=== PATIENT | female | born 1980 | race Caucasian/White ===

== ENCOUNTER 2019-03-18 18:00 | Emergency (ER) | payer OTHER, SELFPAY ==
[2019-03-18 18:16] VITALS: BP 104/66; PULSE 76; RESP 16; TEMP 36.6; O2SAT 99
--- NOTE | 2019-03-18 18:25 | ED.ABDPAIN ---
HPI - Abdominal Pain General Chief Complaint: Abdominal Pain Stated Complaint: lower right abd/back pain Time Seen by Provider: 03/18/19 18:33 Source: patient and RN notes reviewed Mode of arrival: ambulatory Limitations: no limitations History of Present Illness HPI narrative: 38-year-old female presents with concern for acute abdominal pain. Reports pain started last night with right flank pain, right lower quadrant abdominal pain, periumbilical pain. Denies fever, vomiting. Reports last bowel movement was 2 days ago. MD elicited complaint: abdominal pain Pertinent past history: kidney stones Related Data Home Medications Medication Instructions Recorded Confirmed No Home Medications 03/18/19 03/18/19 Allergies Allergy/AdvReac Type Severity Reaction Status Date / Time No Known Allergies Allergy Verified 03/18/19 18:26 Review of Systems Review of Systems: Narrative: CONSTITUTIONAL: Denies malaise, chills, sweats, or fever. CARDIOVASCULAR: Denies chest pain, palpitations RESPIRATORY: Denies cough or dyspnea. GASTROINTESTINAL: Reports right lower quadrant and periumbilical abdominal pain. Denies nausea, vomiting, diarrhea, bloody, or mucous stools. GENITOURINARY: Denies dysuria or hematuria. Reports right flank pain SKIN: Denies rash or itching. MUSCULOSKELETAL: Reports right lower back pain. Denies joint pain, or myalgia. NEUROLOGIC: Denies numbness, weakness, or headache. All systems reviewed & are unremarkable except as noted in HPI and below PMFSH Family History Family History (Updated 11/26/14 @ 00:00 by CONVUSER A) Other Family history of coronary artery disease Hypertension Social History Social History Smoking status: Current every day smoker Comments At time of signature, agree with nursing past medical, surgical, social and family history. There is no relevant family history pertinent to the presenting complaint Exam Narrative: Exam Narrative: GENERAL: Well-appearing, well-nourished, and in no acute distress. HEAD: Normocephalic. EYES: PERRLA, conjunctivae clear. NECK: Supple. No lymphadenopathy CHEST: Clear to auscultation. No respiratory distress. HEART: Regular rate and rhythm. No murmur heard. Normal peripheral pulses. ABDOMEN: Soft, right lower quadrant tenderness, periumbilical tenderness upon palpation, nondistended, normal active bowel sounds, no palpable or pulsatile masses, no guarding. Right CVA tenderness SKIN: Warm, dry, no rash. NEURO: Alert and oriented x3. PSYCH: Normal mood and affect Course Course Emergency Course: Patient is aware of, understands and agrees to reasons to be seen in the emergency department. Portions of this record may have been created with voice recognition software Vital Signs Vital signs: Vital Signs Temperature 97.8 F 03/18/19 18:16 Pulse Rate 76 03/18/19 18:16 Respiratory Rate 16 03/18/19 18:16 Blood Pressure 104/66 03/18/19 18:16 Pulse Oximetry 99 03/18/19 18:16 Temperature 97.8 F 03/18/19 18:16 Pulse Rate 76 03/18/19 18:16 Respiratory Rate 16 03/18/19 18:16 Blood Pressure 104/66 03/18/19 18:16 Pulse Oximetry 99 03/18/19 18:16 Reviewed. Transfer Transfered to: [facility] Transportation: Other (Private vehicle) Transfer rationale: Abdominal pain MDM - Abdominal Pain MDM Narrative Medical decision making narrative: Exam findings warrant further evaluation the emergency department. Patient agrees to proceed directly to emergency department Differential Diagnosis Differential diagnosis: Likely abdominal pain, acute appendicitis, calculus of kidney, constipation, diverticulitis, endometriosis, pancreatitis and small bowel obstruction Critical Care Time Critical Care Time Critical Care Time: No Discharge Plan Discharge Clinical Impression: Abdominal pain Qualifiers: Abdominal location: right lower quadrant Qualified Code(s): R10.31 - Right lower quadrant pain Patient Di
== END 2019-03-18 18:47 | disposition short-term general hospital (02) ==
PROVIDERS: Emergency Provider Nurse Practitioner
DX: R10.31 Right lower quadrant pain (principal); F17.200 Nicotine dependence, unspecified, uncomplicated; K21.9 Gastro-esophageal reflux disease without esophagitis
CPT/HCPCS: 99211; G0463

== ENCOUNTER 2019-12-12 07:51 | Outpatient (CLI) | payer OTHER, SELFPAY ==
--- NOTE | ~2019-12-12 | CT_ITS ---
EXAMINATION: CT abdomen pelvis w con INDICATION: Left lower quadrant abdominal pain TECHNIQUE: Computed tomographic images of the abdomen and pelvis were obtained after the administrati on of 100 cc of Omnipaque 350 intravenous contrast. The dose-length product (DLP) was 778.43 mGy-cm. Automated exposure control and iterative reconstruction technique were employed. COMPARISON: None available FINDINGS: Minimal dependent atelectasis is present in the lung bases. The heart size is normal. There is a small sliding hiatal hernia. The gallbladder is surgically absent. The liver, spleen, pancreas, and adrenal glands are normal. Cysts of the kidneys measure up to 1.4 cm on the right. 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 No pathological ly enlarged abdominal or pelvic lymph nodes are identified. There is no free intraperitoneal gas or e vidence of bowel obstruction. The appendix is normal. A moderate volume of colonic stool is present. IMPRESSION: 1. No CT correlate for the patient's symptoms. Reviewed, dictated and finalized at location A. ASSEMBLER
[2019-12-12 08:04] LABS: Basophils Absolute Auto 0.03 K/mm3 (0.00-0.10); Basophils Percent Auto 0.3 % (0.0-1.0); Eosinophils Absolute Auto 0.24 K/mm3 (0.02-0.50); Eosinophils Percent Auto 2.7 % (1.0-6.0); Hemoglobin 13.5 g/dL (12.0-15.0); Immature Granulocyte Absolute 0.03 K/mm3 (0.00-0.00); Immature Granulocyte Percent A 0.3 % (0.0-0.0); Lymphocytes Absolute Auto 2.51 K/mm3 (1.10-4.50); Lymphocytes Percent Auto 27.9 % (18.0-42.0); Mean Corpuscular HGB Conc 32.1 g/dL (32.0-36.0); Mean Corpuscular Hemoglobin 30.3 pg (27.0-31.0); Mean Corpuscular Volume 94.4 fL (78.0-102.0); Monocytes Absolute Auto 0.54 K/mm3 (0.10-0.90); Neutrophils Absolute Auto 5.6 K/mm3 (1.7-7.2); Neutrophils Percent Auto 62.8 % (50.0-70.0); Platelet Count Result 351 K/mm3 (150-420); Red Blood Count 4.45 M/mm3 (4.20-5.40); Red Cell Distribution Width 13.2 % (11.6-14.4)
[2019-12-12 09:02] LABS: Alanine Aminotransferase 35 U/L (14-59); Alkaline Phosphatase 119 U/L (46-116); Anion Gap 8 mmol/L (8-16); Aspartate Amino Transferase 16 U/L (15-37); Bilirubin,Total 0.7 mg/dL (0.00-1.00); Blood Urea Nitrogen 9 mg/dL (7-18); Carbon Dioxide 28 mmol/L (21-32); Chloride 105 mmol/L (98-108); Estimated Glomerular Filt Rate > 60; Glucose 103 mg/dL (70-99); Osmolality Calculated 290 mOsm/kg (285-295); Potassium 4.3 mmol/L (3.5-5.1); Sodium 141 mmol/L (136-145); Total Protein 7.6 g/dL (6.4-8.2)
== END 2019-12-12 07:52 | disposition home or self-care (01) ==
LOC: CHSIMG 07:53
PROVIDERS: PCP Physician Assistant; Visit Provider Physician Assistant
DX: R10.32 Left lower quadrant pain (principal); R19.7 Diarrhea, unspecified
CPT/HCPCS: 36415; 74177; 80053; 85025; Q9965

== ENCOUNTER 2020-09-01 08:53 | Emergency (ER) | payer BC, SELFPAY ==
--- NOTE | ~2020-09-01 | US_ITS ---
EXAMINATION: US venous doppler [facility] EXAM DATE: 09/01/2020 10:08 INDICATION: Left calf pain, swelling. TECHNIQUE: Multiple grayscale, color flow and Doppler images of the left lower extremity deep venous system were obtained and reviewed. There is no prior study for comparison. FINDINGS: The left common femoral, femoral and profunda veins demonstrate normal color flow, respirat ory variation, augmentation and compressibility. Compressibility, color flow confirmed within the le ft popliteal, posterior tibial, peroneal, and greater saphenous veins. IMPRESSION: No left lower extremity deep venous thrombosis. Reviewed, dictated and finalized at location B.
--- NOTE | ~2020-09-01 | XR_ITS ---
EXAMINATION: XR chest 1V portable EXAM DATE: 09/01/2020 09:49 INDICATION: Leg swelling, shortness of breath. TECHNIQUE: Portable AP frontal chest x-ray was obtained. There is no prior study for comparison. FINDINGS: The lungs are clear. There are no pleural effusions. The cardiomediastinal silhouette is within normal limits. There is no pneumothorax suspected. The bones and soft tissues are unremarkab le. IMPRESSION: No acute cardiopulmonary findings. Reviewed, dictated and finalized at location B.
[2020-09-01 09:23] VITALS: BP 119/79; PULSE 71; RESP 16; TEMP 36.6; O2SAT 98
--- NOTE | 2020-09-01 09:36 | ECG_ITS ---
Measurements Intervals [place] Rate: 68 P: 66 [place]: 185 QRS: 49 QRSD: 88 T: 19 QT: 411 QTc: 438 Interpretive Statements SINUS RHYTHM INCOMPLETE RIGHT BUNDLE BRANCH BLOCK BASELINE ARTIFACT- II, III, AVF BORDERLINE ECG Electronically Signed On 09-01-2020 10:20:51 CDT by Jose Foster D.O.
--- NOTE | 2020-09-01 09:43 | ED.EXTPRO ---
HPI - Extremity Problem General Chief complaint: Extremity Problem,Nontraumatic Stated complaint: LEFT CALF SWOLLEN Time Seen by Provider: 09/01/20 09:25 Source: patient and RN notes reviewed Mode of arrival: ambulatory Limitations: no limitations History of Present Illness Complaint: extremity pain and extremity swelling Onset (ago): day(s) (3) Pain Consistency: constant Location: left and lower extremity Severity scale (1-10): 6 Quality: aching and dull Radiation: none Relieving factors: nothing Exacerbating factors: nothing Associated symptoms: denies other symptoms Related Data Home Medications Medication Instructions Recorded Confirmed No Home Medications 03/18/19 09/01/20 Allergies Allergy/AdvReac Type Severity Reaction Status Date / Time No Known Allergies Allergy Verified 06/21/19 07:20 Review of Systems Review of Systems: All systems reviewed & are unremarkable except as noted in HPI and below Constitutional: Constitutional: Reports as per HPI and Reports no additional constitutional complaints Eyes: Eyes: Reports as per HPI and Reports no additional eye complaints ENT: Reports system reviewed and no additional complaints, except as documented and Reports as per HPI Cardiovascular: Cardiovascular: Reports as per HPI and Reports no additional cardiovascular complaints Respiratory: Respiratory: Reports as per HPI and Reports no additional respiratory complaints Gastrointestinal: Gastrointestinal: Reports as per HPI and Reports no additional gastrointestinal complaints Genitourinary: Genitourinary: Reports no additional female genitourinary complaints and Reports as per HPI Musculoskeletal: Musculoskeletal: Reports no additional musculoskeletal complaints and Reports as per HPI Integumentary/Breasts: Skin/Breast: Reports system reviewed and no additional complaints, except as docu and Reports as per HPI Neurologic: Reports system reviewed and no additional complaints, except as documented and Reports as per HPI Psychiatric: Psychiatric: Reports no additional psychiatric complaints and Reports as per HPI Endocrine: Endocrine: Reports no additional endocrine complaints and Reports as per HPI Hematologic/Lymphatic: Hematologic/Lymphatic: Reports no additional hematologic/lymphatic complaints and Reports as per HPI Allergic/Immunologic: Allergic/Immunologic: Reports no additional allergic/immunologic complaints and Reports as per HPI PMFSH Past Medical History Medical History (Updated 09/01/20 @ 12:22 by Salma Campo MD) Muscle pain Family History Family History Other Family history of coronary artery disease Hypertension Social History Social History Smoking status: Current every day smoker Exam Const: General: healthy appearing, no acute distress and alert Nutritional Appearance: well nourished Orientation/consciousness: patient oriented x3 Limitations: no limitations HENMT: Head: normal to inspection Ears: external ears normal and TM's normal bilaterally General nose exam: Normal external nose present and Normal nares present Mouth: Yes lip normal and Yes moist mucous membranes Teeth and gingiva: dentition normal Eyes: Conjunctivae: conjunctivae normal Pupils: Equal, round and reactive pupils present EOM: EOMs intact bilaterally Neck: Neck: normal visual inspection and no lymphadenopathy Chest: Chest palpation & inspection: normal inspection of the chest Resp: Effort & Inspection: normal respiratory effort Auscultation: clear to auscultation bilaterally Cardio: Rate: regular rate Rhythm: regular rhythm GI: GI Palp: Yes Soft to palpation Percussion: Yes normal to percussion Auscultation: normal bowel sounds : General: Yes bladder normal to palpation and Yes no CVA tenderness Back/Spine/Pelvis: Back: no CVA tenderness Skin: General sk
[2020-09-01] MEDS: KETOROLAC (*BKC) 60 MG/2 ML VIAL IM (09:48)
[2020-09-01 09:58] LABS: Basophils Absolute Auto 0.04 K/mm3 (0.00-0.10); Basophils Percent Auto 0.5 % (0.0-1.0); Eosinophils Absolute Auto 0.26 K/mm3 (0.02-0.50); Eosinophils Percent Auto 3.1 % (1.0-6.0); Hematocrit 40.5 % (35.0-49.0); Immature Granulocyte Absolute 0.04 K/mm3 (0.00-0.00); Immature Granulocyte Percent A 0.5 % (0.0-0.0); Lymphocytes Absolute Auto 3.16 K/mm3 (1.10-4.50); Lymphocytes Percent Auto 37.2 % (18.0-42.0); Mean Corpuscular HGB Conc 32.1 g/dL (32.0-36.0); Mean Corpuscular Hemoglobin 30.2 pg (27.0-31.0); Mean Corpuscular Volume 94.2 fL (78.0-102.0); Monocytes Absolute Auto 0.45 K/mm3 (0.10-0.90); Monocytes Percent Auto 5.3 % (2.0-11.0); Neutrophils Absolute Auto 4.5 K/mm3 (1.7-7.2); Neutrophils Percent Auto 53.4 % (50.0-70.0); Platelet Count Result 416 K/mm3 (150-420); Red Cell Distribution Width 13.6 % (11.6-14.4); White Blood Count 8.5 K/mm3 (4.8-10.8)
[2020-09-01 10:10] LABS: Alanine Aminotransferase 34 U/L (14-59); Albumin Level 3.8 g/dL (3.4-5.0); Alkaline Phosphatase 112 U/L (46-116); Anion Gap 15 mmol/L (8-16); Aspartate Amino Transferase 20 U/L (15-37); Bilirubin,Total 0.5 mg/dL (0.00-1.00); Blood Urea Nitrogen 13 mg/dL (7-18); Calcium 8.7 mg/dL (8.5-10.1); Carbon Dioxide 27 mmol/L (21-32); Chloride 103 mmol/L (98-108); Estimated CRCL calculation 77 ml/min; Estimated Glomerular Filt Rate > 60; Glucose 98 mg/dL (70-99); Osmolality Calculated 300 mOsm/kg (285-295); Potassium 3.8 mmol/L (3.5-5.1); Sodium 145 mmol/L (136-145); Total Protein 7.8 g/dL (6.4-8.2)
[2020-09-01 10:12] LABS: Partial Thromboplastin Time 30.6 SEC (23.90-30.70); Prothrombin Time 10.4 Seconds (9.50-12.10)
[2020-09-01 10:14] LABS: SPREG INTERNAL CONTROL Positive; Serum Qual hCG Negative
--- NOTE | 2020-09-01 11:57 | PC.NURSE ---
pt informed er is very busy and erp will see sendy. no change in pt condition. denies needs at this time. call merchant within reach
[2020-09-01 12:33] VITALS: BP 99/66; PULSE 72
== END 2020-09-01 12:34 | disposition home or self-care (01) ==
PROVIDERS: Emergency Provider Emergency Medicine
DX: S86.912A Strain of unspecified muscle(s) and tendon(s) at lower leg level, left leg, initial encounter (principal)
CPT/HCPCS: 36415; 71045; 80053; 84703; 85025; 85610; 85730; 93005; 93971; 96372; 99283; 99284; J1885

== ENCOUNTER 2021-10-12 07:26 | Emergency (ER) | payer OTHER, BC, SELFPAY ==
[2021-10-12 07:30] VITALS: BP 112/79; PULSE 65; RESP 16; TEMP 36.4; O2SAT 97
[2021-10-12 07:35] LABS: Glucose Point of Care 123 mg/dl (65-105)
--- NOTE | 2021-10-12 07:41 | ED.DIZZY ---
HPI - Dizziness General Chief Complaint: Dizziness Stated Complaint: Dizzy/facial numbness L side Time Seen by Provider: 10/12/21 07:41 Source: patient and RN notes reviewed Mode of arrival: ambulatory Limitations: no limitations History of Present Illness MD elicited complaint: dizziness Onset (ago): hour(s) (1.5) Timing: sudden onset Severity: moderate Description: room spinning Context: change in body position History of similar symptoms: No Exacerbating factors: change in body position Relieving factors: rest Associated symptoms: nausea Associated neuro symptoms: other ( tingling in left upper lip and some tingling in her right hand) Related Data Home Medications Medication Instructions Recorded Confirmed levothyroxine 112 mcg tablet 112 mcg PO DAILY 10/12/21 10/12/21 Allergies Allergy/AdvReac Type Severity Reaction Status Date / Time amoxicillin [From Amoxil] Allergy Hives Verified 10/12/21 07:38 Review of Systems Review of Systems: All systems reviewed & are unremarkable except as noted in HPI and below PMFSH Past Medical History Medical History (Updated 10/12/21 @ 08:29 by Tino Daugherty MD) Endometriosis of ovary (11/26/14) Heartburn (01/14/15) Hypothyroidism Lumbago (11/26/14) Muscle pain Rotator cuff syndrome (11/26/14) Surgical History Surgical History (Updated 10/12/21 @ 08:00 by Tino Daugherty MD) H/O brain surgery H/O rotator cuff surgery Hx of cholecystectomy Hx of mastoidectomy Family History Family History Other Family history of coronary artery disease Hypertension Social History Social History Smoking status: Current every day smoker Exam Const: General: healthy appearing and no acute distress Nutritional Appearance: well nourished Orientation/consciousness: patient oriented x3 Limitations: no limitations Other: female tech in the room during examination. HENMT: Head: normal to inspection Ears: TM's normal bilaterally Eyes: Conjunctivae: conjunctivae normal Pupils: Equal, round and reactive pupils present EOM: EOMs intact bilaterally Neck: Neck: normal visual inspection Resp: Effort & Inspection: normal respiratory effort Auscultation: clear to auscultation bilaterally Cardio: Rate: regular rate Rhythm: regular rhythm GI: GI Palp: Yes Soft to palpation and No Tenderness to palpation present (GI) Auscultation: normal bowel sounds Back/Spine/Pelvis: Cervical Spine: cervical ROM normal Thoracic/Lumbar Spine: thoraco-lumbar ROM normal Skin: General skin exam: normal color Rashes: no rashes Neuro: General: patient oriented x3, moves all extremities, no focal motor deficits and CN's II-XI intact bilaterally Cranial nerves: Yes Nystagmus not present Speech: normal speech Gait exam (Neuro): Normal gait present Other: Sitting up reproduces her symptoms. Extrem: General: normal to inspection and no clubbing, cyanosis or edema Psych: Mental Status: mental status grossly normal Affect: normal affect Attitude: cooperative Course Course Emergency Course: Improved after dose of meclizine in the emergency room. Vital Signs Vital signs: Vital Signs Temperature 36.4 C L 10/12/21 07:30 Pulse Rate 65 10/12/21 07:30 Respiratory Rate 16 10/12/21 07:30 Blood Pressure 112/79 10/12/21 07:30 Pulse Oximetry 97 10/12/21 07:30 Oxygen Delivery Room Air 10/12/21 07:30 Temperature 36.4 C L 10/12/21 07:30 Pulse Rate 78 10/12/21 08:30 Respiratory Rate 14 10/12/21 08:30 Blood Pressure 101/84 10/12/21 08:30 Pulse Oximetry 98 10/12/21 08:30 Oxygen Delivery Room Air 10/12/21 08:30 MDM - Dizziness Lab Data Attestation: I reviewed the patient's lab results. Result diagrams: 10/12/21 07:55 10/12/21 07:55 Labs: Lab Results 10/12/21 10/12/21 10/12/21 Range/Units 07:33 0
[2021-10-12] MEDS: MECLIZINE HCL 25 MG TABLET PO (08:01)
[2021-10-12 08:02] LABS: Basophils Absolute Auto 0.02 K/mm3 (0.00-0.10); Basophils Percent Auto 0.3 % (0.0-1.0); Eosinophils Absolute Auto 0.16 K/mm3 (0.02-0.50); Eosinophils Percent Auto 2.3 % (1.0-6.0); Hematocrit 37.7 % (35.0-49.0); Hemoglobin 12.3 g/dL (12.0-15.0); Immature Granulocyte Absolute 0.02 K/mm3 (0.00-0.00); Immature Granulocyte Percent A 0.3 % (0.0-0.0); Lymphocytes Absolute Auto 2.13 K/mm3 (1.10-4.50); Lymphocytes Percent Auto 30.7 % (18.0-42.0); Mean Corpuscular HGB Conc 32.6 g/dL (32.0-36.0); Mean Corpuscular Hemoglobin 29.5 pg (27.0-31.0); Mean Corpuscular Volume 90.4 fL (78.0-102.0); Mean Platelet Volume 9.4 fl (9.2-11.8); Monocytes Absolute Auto 0.42 K/mm3 (0.10-0.90); Monocytes Percent Auto 6.1 % (2.0-11.0); Neutrophils Absolute Auto 4.2 K/mm3 (1.7-7.2); Neutrophils Percent Auto 60.3 % (50.0-70.0); Platelet Count Result 400 K/mm3 (150-420); Red Blood Count 4.17 M/mm3 (4.20-5.40); Red Cell Distribution Width 13.5 % (11.6-14.4); White Blood Count 6.9 K/mm3 (4.8-10.8)
[2021-10-12 08:25] LABS: Alanine Aminotransferase 27 U/L (14-59); Albumin Level 3.4 g/dL (3.4-5.0); Alkaline Phosphatase 118 U/L (46-116); Anion Gap 9 mmol/L (8-16); Aspartate Amino Transferase 17 U/L (15-37); Bilirubin,Total 0.7 mg/dL (0.00-1.00); Blood Urea Nitrogen 12 mg/dL (7-18); Calcium 8.6 mg/dL (8.5-10.1); Carbon Dioxide 27 mmol/L (21-32); Chloride 102 mmol/L (98-108); Estimated CRCL calculation 83 ml/min; Estimated Glomerular Filt Rate > 60; Glucose 114 mg/dL (70-99); Osmolality Calculated 286 mOsm/kg (285-295); Potassium 3.6 mmol/L (3.5-5.1); Sodium 138 mmol/L (136-145); Total Protein 7.1 g/dL (6.4-8.2)
[2021-10-12 08:27] LABS: Magnesium 1.8 mg/dL (1.8-2.4)
[2021-10-12 08:30] VITALS: BP 101/84; PULSE 78; RESP 14; O2SAT 98
== END 2021-10-12 08:35 | disposition home or self-care (01) ==
PROVIDERS: Emergency Provider Emergency Medicine
DX: H81.10 Benign paroxysmal vertigo, unspecified ear (principal); E03.9 Hypothyroidism, unspecified; F17.200 Nicotine dependence, unspecified, uncomplicated
CPT/HCPCS: 36415; 80053; 82948; 83735; 84443; 85025; 99283; A9270

== ENCOUNTER 2022-09-24 13:40 | Emergency (ER) | payer OTHER, BC, SELFPAY ==
--- NOTE | ~2022-09-24 | XR_ITS ---
EXAMINATION: XR chest 1V portable DATE: 09/24/2022 14:05 INDICATION: Cough and congestion. TECHNIQUE: A single frontal view of the chest was obtained. COMPARISON: Chest single view 09/01/2020, CT abdomen and pelvis 12/12/2019 FINDINGS: There is no pneumonia, pleural effusion, or pneumothorax. The heart size is normal. IMPRESSION: 1. No acute cardiopulmonary disease. Reviewed, dictated and finalized at location A.
[2022-09-24 13:48] VITALS: BP 109/75; PULSE 82; RESP 18; TEMP 37.1; O2SAT 94
[2022-09-24 13:52] VITALS: O2SAT 94
[2022-09-24 14:05] LABS: Basophils Absolute Auto 0.04 K/mm3 (0.00-0.10); Basophils Percent Auto 0.5 % (0.0-1.0); Eosinophils Absolute Auto 0.27 K/mm3 (0.02-0.50); Eosinophils Percent Auto 3.4 % (1.0-6.0); Hematocrit 42.8 % (35.0-49.0); Hemoglobin 13.6 g/dL (12.0-15.0); Immature Granulocyte Absolute 0.02 K/mm3 (0.00-0.00); Immature Granulocyte Percent A 0.3 % (0.0-0.0); Lymphocytes Absolute Auto 2.02 K/mm3 (1.10-4.50); Lymphocytes Percent Auto 25.7 % (18.0-42.0); Mean Corpuscular HGB Conc 31.8 g/dL (32.0-36.0); Mean Corpuscular Hemoglobin 29.2 pg (27.0-31.0); Mean Corpuscular Volume 91.8 fL (78.0-102.0); Mean Platelet Volume 9.1 fl (9.2-11.8); Monocytes Absolute Auto 0.51 K/mm3 (0.10-0.90); Monocytes Percent Auto 6.5 % (2.0-11.0); Neutrophils Percent Auto 63.6 % (50.0-70.0); Platelet Count Result 375 K/mm3 (150-420); Red Blood Count 4.66 M/mm3 (4.20-5.40); Red Cell Distribution Width 14.9 % (11.6-14.4); White Blood Count 7.9 K/mm3 (4.8-10.8)
[2022-09-24] MEDS: SODIUM CHLORIDE 0.9% IV 1,000 ML 999 ML IV CONT (14:16)
[2022-09-24 14:22] LABS: Alanine Aminotransferase 33 U/L (14-59); Albumin Level 3.4 g/dL (3.4-5.0); Alkaline Phosphatase 133 U/L (46-116); Anion Gap 9 mmol/L (8-16); Aspartate Amino Transferase 23 U/L (15-37); Bilirubin,Total 0.8 mg/dL (0.00-1.00); Blood Urea Nitrogen 8 mg/dL (7-18); Calcium 8.9 mg/dL (8.5-10.1); Carbon Dioxide 27 mmol/L (21-32); Chloride 103 mmol/L (98-108); Estimated Glomerular Filt Rate > 60; Glucose 92 mg/dL (70-99); Osmolality Calculated 286 mOsm/kg (285-295); Potassium 3.9 mmol/L (3.5-5.1); Sodium 139 mmol/L (136-145); Total Protein 7.6 g/dL (6.4-8.2)
[2022-09-24 14:48] LABS: Influenza A QL RT-PCR Negative (Negative); Influenza B QL RT-PCR Negative (Negative); RSV RNA, RT-PCR Negative (Negative); SARS-CoV-2 RNA PCR Negative (Negative)
--- NOTE | 2022-09-24 14:49 | ED.URI ---
HPI - URI/Sore Throat General Chief Complaint: Upper Respiratory Infection Stated Complaint: congestion Time Seen by Provider: 09/24/22 13:50 Source: patient and family Mode of arrival: ambulatory Limitations: no limitations History of Present Illness HPI Narrative: This is a 42-year-old female that presents with a 2 day history of cough congestion with some nausea and an episode of vomiting with persistent diarrhea with no crampy abdominal pain no fever chills patient initially had a blood pressure of 100 systolic and saturations 94% cough is nonproductive with no dysuria no flank pain no hematuria. Patient had a COVID test at home that was negative. MD elicited complaint: cough Onset (ago): day(s) Related Data Home Medications Medication Instructions Recorded Confirmed levothyroxine 112 mcg tablet 112 mcg PO DAILY 10/12/21 09/24/22 liothyronine 5 mcg tablet 2.5 mcg PO BID 09/24/22 09/24/22 Allergies Allergy/AdvReac Type Severity Reaction Status Date / Time amoxicillin [From Amoxil] Allergy Hives Verified 09/24/22 13:46 Review of Systems Review of Systems: All systems reviewed & are unremarkable except as noted in HPI and below PMFSH Past Medical History Medical History Endometriosis of ovary (11/26/14) Heartburn (01/14/15) Hypothyroidism Lumbago (11/26/14) Muscle pain Rotator cuff syndrome (11/26/14) Surgical History Surgical History H/O brain surgery H/O rotator cuff surgery Hx of cholecystectomy Hx of mastoidectomy Family History Family History Other Family history of coronary artery disease Hypertension Social History Social History Smoking status: Current every day smoker Exam Const: General: healthy appearing Nutritional Appearance: well nourished Limitations: no limitations Eyes: Conjunctivae: conjunctivae normal Neck: Neck: normal visual inspection Chest: Chest palpation & inspection: normal inspection of the chest Resp: Effort & Inspection: normal respiratory effort Auscultation: clear to auscultation bilaterally Cardio: Rate: regular rate Rhythm: regular rhythm GI: GI Palp: Yes Soft to palpation Auscultation: normal bowel sounds : General: Yes bladder normal to palpation Urinary Catheter: Urinary Catheter: patent and draining Back/Spine/Pelvis: Back: no CVA tenderness Skin: General skin exam: normal color Rashes: no rashes Neuro: General: patient oriented x3 and moves all extremities Psych: Mental Status: mental status grossly normal Course Course Emergency Course: Patient received bolus of IV fluids had a systolic pressure initially 100 negative COVID and x-ray showed no acute cardiopulmonary abnormalities blood work reviewed with patient within normal limits. Vital Signs Vital signs: Vital Signs Temperature 37.1 C 09/24/22 13:48 Pulse Rate 82 09/24/22 13:48 Respiratory Rate 18 09/24/22 13:48 Blood Pressure 109/75 09/24/22 13:48 Pulse Oximetry 94 09/24/22 13:48 Oxygen Delivery Room Air 09/24/22 13:48 Temperature 37.1 C 09/24/22 13:48 Pulse Rate 82 09/24/22 13:48 Respiratory Rate 18 09/24/22 13:48 Blood Pressure 109/75 09/24/22 13:48 Pulse Oximetry 94 09/24/22 13:52 Oxygen Delivery Room Air 09/24/22 13:52 MDM - URI/Sore Throat Lab Data 09/24/22 13:58 09/24/22 13:58 Labs: Lab Results 09/24/22 Range/Units 13:58 WBC 7.9 (4.8-10.8) K/mm3 RBC 4.66 (4.20-5.40) M/mm3 Hgb 13.6 (12.0-15.0) g/dL Hct 42.8 (35.0-49.0) % MCV 91.8 (78.0-102.0) fL MCH 29.2 (27.0-31.0) pg MCHC 31.8 L (32.0-36.0) g/dL RDW 14.9 H (11.6-14.4) % Plt Count 375 (150-420) K/mm3 MPV 9.1 L (9.2-11.8) fl Immature Gran % (Auto) 0.3 H (0.0-0
[2022-09-24 15:13] VITALS: BP 98/67; PULSE 76; RESP 18; TEMP 36.8; O2SAT 95
== END 2022-09-24 15:14 | disposition home or self-care (01) ==
PROVIDERS: Emergency Provider Emergency Medicine
DX: K52.9 Noninfective gastroenteritis and colitis, unspecified (principal); B34.9 Viral infection, unspecified; E03.9 Hypothyroidism, unspecified; F17.200 Nicotine dependence, unspecified, uncomplicated; Z20.822 Contact with and (suspected) exposure to COVID-19
CPT/HCPCS: 36415; 71045; 80053; 85025; 87637; 96360; 99283; J7030

== ENCOUNTER 2023-05-02 18:47 | Emergency (ER) | payer OTHER, BC, SELFPAY ==
[2023-05-02 18:47] VITALS: BP 118/85; PULSE 92; RESP 16; TEMP 36.5; O2SAT 98
--- NOTE | 2023-05-02 19:00 | ED.EYEPROB ---
HPI - Eye Problem General Chief complaint: Eye Problems Stated complaint: left eye redness and irritation Time Seen by Provider: 05/02/23 18:54 Source: patient Mode of arrival: ambulatory Limitations: no limitations History of Present Illness HPI Narrative: Patient is a 43-year-old female with bilateral eye redness and irritation for the past month and a half. She went to the primary doctor last week and they gave her ofloxacin ophthalmic which is actually making it worse. chief complaint: eye pain and eye redness Onset (ago): month(s) (1.5) Onset description: gradual Duration: constant Location: both eyes Eye Symptoms: burning and redness Place: home Mechanism: none Severity: moderate Severity scale (1-10): 4 If Pain, Quality: burning Associated symptoms: none Treatments Prior to Arrival: other ( Floxin ophthalmic) Related Data Home Medications Medication Instructions Recorded Confirmed levothyroxine 112 mcg tablet 112 mcg PO DAILY 10/12/21 09/24/22 liothyronine 5 mcg tablet 2.5 mcg PO BID 09/24/22 09/24/22 Allergies Allergy/AdvReac Type Severity Reaction Status Date / Time amoxicillin [From Amoxil] Allergy Hives Verified 05/02/23 18:59 Review of Systems Review of Systems: All systems reviewed & are unremarkable except as noted in HPI and below Constitutional: Constitutional: Reports no additional constitutional complaints Eyes: Eyes: Reports no additional eye complaints ENT: Reports system reviewed and no additional complaints, except as documented Cardiovascular: Cardiovascular: Reports no additional cardiovascular complaints Respiratory: Respiratory: Reports no additional respiratory complaints Gastrointestinal: Gastrointestinal: Reports no additional gastrointestinal complaints Genitourinary: Genitourinary: Reports no additional female genitourinary complaints Musculoskeletal: Musculoskeletal: Reports no additional musculoskeletal complaints Integumentary/Breasts: Skin/Breast: Reports system reviewed and no additional complaints, except as docu Neurologic: Reports system reviewed and no additional complaints, except as documented Psychiatric: Psychiatric: Reports no additional psychiatric complaints Endocrine: Endocrine: Reports no additional endocrine complaints Hematologic/Lymphatic: Hematologic/Lymphatic: Reports no additional hematologic/lymphatic complaints Allergic/Immunologic: Allergic/Immunologic: Reports no additional allergic/immunologic complaints PMFSH Past Medical History Medical History Endometriosis of ovary (11/26/14) Heartburn (01/14/15) Hypothyroidism Lumbago (11/26/14) Muscle pain Rotator cuff syndrome (11/26/14) Surgical History Surgical History H/O brain surgery H/O rotator cuff surgery Hx of cholecystectomy Hx of mastoidectomy Family History Family History Other Family history of coronary artery disease Hypertension Social History Social History Smoking status: Current every day smoker Exam Const: General: healthy appearing Nutritional Appearance: well nourished Orientation/consciousness: patient oriented x3 HENMT: Head: normal to inspection Ears: external ears normal Face/Nose/Sinus: Normal external nose present Eyes: Conjunctivae: abnormal conjunctivae and conjunctival abnormality ( red and inflamed conjunctiva bilaterally) bilateral Pupils: Equal, round and reactive pupils present EOM: EOMs intact bilaterally Neck: Neck: normal visual inspection Chest: Chest palpation & inspection: normal inspection of the chest Resp: Effort & Inspection: normal respiratory effort and not labored Auscultation: clear to auscultation bilaterally Cardio: Rate: regular rate Rhythm: regular rhythm Heart sounds: no murmurs GI:
[2023-05-02] MEDS: NEOMYCIN/POLYMYXIN/HYDROCORT 7.5 ML EYE DROPS (*BKC) 2 DROP EACH EYE (20:26)
[2023-05-02 20:37] VITALS: BP 118/78; PULSE 86; RESP 18; O2SAT 97
== END 2023-05-02 20:38 | disposition home or self-care (01) ==
PROVIDERS: Emergency Provider Emergency Medicine
DX: H10.13 Acute atopic conjunctivitis, bilateral (principal); E03.9 Hypothyroidism, unspecified; F17.200 Nicotine dependence, unspecified, uncomplicated
CPT/HCPCS: 99283; A9270